=== PATIENT | female | born 1990 | race Two or more races ===

== ENCOUNTER 2019-12-15 23:55 | Emergency (ER) | payer SELFPAY ==
[~2019-12-15] VITALS: Ht 157.5 cm; Wt 59.0 kg
--- NOTE | 2019-12-16 | NUR ---
PATIENT CAME TO ER BED 10 C/O LACERATION ON FOREHEAD. PATIENT STAES THAT SHE WAS ON HER WAY HOME FROM HER BROTHER'S HOUSE WHEN SHE HAD FALLEN ASLEEP BEHIND THE WHEEL. PATIENT STATES THAT SHE WOKE UP WITH A LACERATION ON HER FOREHEAD BETWEEN HER TWO EYEBROWS. PATIENT DENIES DRINKING ALCOHOL OR TAKING ANY DRUGS. AAOX4. NO SOB. BREATHING EVENLY AND UNLABORED. Addendum: 12/16/19 at 0012 by KINA CURRENTLY NO BLEEDING.
[2019-12-16] MEDS ORDERED: LIDOCAINE 1%-EPI 1:100,000 20 ML VIAL ONE (00:02)
[2019-12-16] MEDS ORDERED: TDAP [DIPH/PERTUSSIS/TET] 0.5 ML VIAL IM ONE ×2 (00:04→00:30)
--- NOTE | 2019-12-16 00:09 | NUR ---
TECH AT BEDSIDE FOR CLEANING.
--- NOTE | 2019-12-16 00:19 | NUR ---
waiver form signed
--- NOTE | 2019-12-16 00:35 | NUR ---
Patient returned from CT
--- NOTE | 2019-12-16 00:55 | NUR ---
lapd at bedside
--- NOTE | 2019-12-16 01:58 | NUR ---
Patient discharged to home in stable condition. Written and verbal after care instructions given. Patient verbalizes understanding of instruction.
--- NOTE | 2019-12-16 02:09 | NUR ---
Step-Mother picked patient up to drive her home.
[2019-12-16 02:18] VITALS: BP 118/77
== END 2019-12-16 02:19 | disposition home or self-care (01) ==
LOC: ER 23:59
DX: S01.112A Laceration without foreign body of left eyelid and periocular area, initial encounter (principal); V49.49XA Driver injured in collision with other motor vehicles in traffic accident, initial encounter; Y93.89 Activity, other specified; Y92.413 State road as the place of occurrence of the external cause; Y99.8 Other external cause status
CPT/HCPCS: 12014; 70450; 70486; 72125; 90471; 90715; 99285; A6403; J3490